=== PATIENT | male | born 1950 | race Caucasian/White ===

== ENCOUNTER 2016-07-04 09:53 | Outpatient (RCR) | payer MEDICARE ==
[~2016-07-04] VITALS: Ht 170.2 cm; Wt 112.9 kg
[2016-07-04] MEDS ORDERED: NS FLUSH 10 ML PRN IV (10:20)
[2016-07-04] MEDS: cefTRIAXone SODIUM 1,000 MG in SODIUM CHLORIDE 50 ML IV SCH (10:50)
[2016-07-04] MEDS: NS FLUSH 3 ML PRN IV (10:51)
[2016-07-05] MEDS: NS FLUSH 3 ML PRN IV (09:59)
[2016-07-05] MEDS: cefTRIAXone SODIUM 1,000 MG in SODIUM CHLORIDE 50 ML IV SCH (09:59)
[2016-07-06] MEDS: cefTRIAXone SODIUM 1,000 MG in SODIUM CHLORIDE 50 ML IV SCH (09:45)
[2016-07-06] MEDS: NS FLUSH 3 ML PRN IV ×2 (09:46→10:14)
[2016-07-07] MEDS: NS FLUSH 3 ML PRN IV ×2 (10:09→10:33)
[2016-07-07] MEDS: cefTRIAXone SODIUM 1,000 MG in SODIUM CHLORIDE 50 ML IV SCH (10:11)
[2016-07-07 10:18] VITALS: BP 138/68
[2016-07-26] MEDS ORDERED: ROCURONIUM 50 MG/5 ML (ZEMURON) VIAL IV ONE ×2 (10:11→11:14)
[2016-07-26] MEDS ORDERED: ALFENTANIL 500 MCG/ML (ALFENTA) 5 ML AMP IV ONE (10:11)
[2016-07-26] MEDS ORDERED: PROPOFOL 20 ML IV ONE (10:11)
[2016-07-26] MEDS ORDERED: ONDANSETRON 2 MG/ML (Z0FRAN) 2 ML VIAL ONE (10:20)
[2016-07-26] MEDS ORDERED: diphenhydrAMINE 50 MG/ML INJ (BENADRYL) ONE (10:20)
[2016-07-26] MEDS ORDERED: ePHEDrine SULFATE 50 MG/ML 1 ML AMP ONE (10:55)
[2016-07-26] MEDS ORDERED: ATROPINE SULFATE 1 MG/1 ML SDV IV ONE (11:08)
[2016-07-26] MEDS ORDERED: GLYCOPYRROLATE 0.2 MG/ML (ROBINUL) 1 ML VIAL ONE (11:10)
[2016-07-26] MEDS ORDERED: KETOROLAC 60 MG/2 ML (TORADOL) VIAL IM ONE (11:10)
[2016-07-26] MEDS ORDERED: NEOSTIGMINE 1 MG/ML SYRINGE ONE (11:10)
[2016-07-26] MEDS ORDERED: METOCLOPRAMIDE 10 MG/2 ML (REGLAN) VIAL ONE (12:06)
[2016-07-26] MEDS ORDERED: NALOXONE 0.4 MG/ML (NARCAN) 1 ML VIAL ONE (12:10)
== END 2016-10-02 | disposition home or self-care (01) ==
LOC: EUOP 07-05 09:49
PROVIDERS: ATTEND Family Medicine
DX: A41.9 Sepsis, unspecified organism (principal)
CPT/HCPCS: 96365; J0461; J0696; J1200; J1885; J2310; J2405; J2710; J2765; J3490; 36000